=== PATIENT | male | born 1970 | race Caucasian/White ===

== ENCOUNTER → 2022-09-22 | Outpatient (CLI) | payer OTHER ==
--- NOTE | 2022-09-22 12:49 | DIREP ---
PROCEDURE:XRAY SHOULDER MIN 2 VWS-RT COMPARISON:None. INDICATIONS:Z00.00 HISTORY AND PHYSICAL EVALUATION FINDINGS: BONES:Normal. 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 No evidence for dislocation. SOFT TISSUES:Normal. OTHER:Normal. CONCLUSION:Moderate degenerative changes of the right AC joint Dictated by: Kayleigh Sarabia M.D. on 09/22/2022 at 12:39 PM
--- NOTE | 2022-09-22 13:47 | DIREP ---
PROCEDURE:XRAY SINUSES PARANASAL<3 VWS COMPARISON:None. INDICATIONS:Z00.00 HISTORY AND PHYSICAL EVALUATION TECHNIQUE: Three views of the paranasal sinuses FINDINGS: MAXILLARY:Normal. No mucosal thickening or fluid level. ETHMOID:Normal. No mucosal thickening or fluid level. FRONTAL:Normal. No mucosal thickening or fluid level. SPHENOID:Normal. No mucosal thickening or fluid level. OTHER:Negative. CONCLUSION:Negative exam. If clinical suspicion persists consider CT imaging Dictated by: Kayleigh Sarabia M.D. on 09/22/2022 at 01:45 PM
--- NOTE | 2022-09-22 14:23 | DIREP ---
PROCEDURE:XRAY SHOULDER MIN 2 VWS-LT COMPARISON:None. INDICATIONS:Z00.00 HISTORY AND PHYSICAL EVALUATION FINDINGS: BONES:Normal. JOINTS:Normal glenohumeral joint. Normal acromioclavicular joint. No evidence for dislocation. SOFT TISSUES:Normal. OTHER:Normal. CONCLUSION:Negative exam Dictated by: Kayleigh Sarabia M.D. on 09/22/2022 at 02:21 PM
--- NOTE | 2022-09-22 14:39 | DIREP ---
PROCEDURE:CHEST 2 VIEWS COMPARISON:None. INDICATIONS:Z00.00 HISTORY AND PHYSICAL EVALUATION FINDINGS: LUNGS/PLEURA:No significant pulmonary parenchymal abnormalities. No effusions. No pneumothorax. VASCULATURE:Normal. Unremarkable pulmonary vasculature. CARDIAC:Normal. No cardiac silhouette abnormality or cardiomegaly. MEDIASTINUM:Normal. No visible mass or adenopathy. BONES:Normal. No fracture or visible bony lesion. OTHER:Negative. CONCLUSION:No acute cardiopulmonary abnormality. Dictated by: Casey Castanon M.D. on 09/22/2022 at 02:37 PM
== END | disposition home or self-care (01) ==
LOC: RAD 11:55
PROVIDERS: ATTEND Nurse Practitioner
DX: M19.011 Primary osteoarthritis, right shoulder (principal); Z00.00 Encounter for general adult medical examination without abnormal findings
CPT/HCPCS: 70220; 71046; 73030-LT; 73030-RT